=== PATIENT | female | born 1985 | race Caucasian/White ===

== ENCOUNTER 2016-11-16 14:50 | Emergency (ER) | payer OTHER ==
--- NOTE | 2016-11-16 15:22 | ED Physician Documentation ---
Abdominal Pain - HISTORIAN Historian: patient - HPI Stated Complaint: left abd pain Chief Complaint: Abdominal Pain Additonal Information: lt flank pain rad sl to llq onset yesterday-constant but slightly lesser today. not had similar prev. b/k = ok menses ok fdlmp=8-17 Onset: days ago (2) Duration: constant. denies: worse Timing: still present Context: denies: out of country travel, bad food Severity: moderate Quality: pain, cramping Associated Symptoms: none. denies: fever, chills, nausea, vomiting - ROS CONST: no problems. denies: recent illness GI/: none. denies: constipation, black stools, bloody urine, problems urinating CVS/RESP: none EYES/ENT: denies: problems with vision MS/SKIN/LYMPH: none NEURO/PSYCH: none - SOCIAL HX Smoking History: less than 1 pack/day Alcohol Use: none Drug Use: none - FAMILY HX Family History: no significant history - PAST HX Past History: none, other (pneumonia as child) Surgeries/Procedures: BLT (btl in 2011--uterin preg 2012) Home Medications: Ambulatory Orders Medication Instructions Recorded NK [NK] 11/16/16 Allergies/Adverse Reactions: Allergies Allergy/AdvReac Type Severity Reaction Status Date / Time latex Allergy Verified 11/16/16 15:17 pecan nut Allergy Verified 11/16/16 15:17 - VITAL SIGNS Vital Signs: Vital Signs Temp Pulse Resp BP Pulse Ox 77 18 107/51 98 11/16/16 14:50 11/16/16 14:50 11/16/16 14:50 11/16/16 14:50 - REVIEWED ASSESSMENTS Nursing Assessment Reviewed: Yes Vitals Reviewed: Yes ED Results Lab/Radiology - Lab Results Lab Results: Lab Results 11/16/16 11/16/16 11/16/16 16:18 16:00 16:00 WBC 5.80 K/ul K/ul (4.00-12.00) RBC 4.46 M/ul M/ul (3.90-5.20) Hgb 12.9 g/dL g/dL (12.0-16.0) Hct 39.6 % % (34.5-46.5) MCV 89.0 fl fl (80.0-100.0) MCH 29.0 pg pg (28.0-34.0) MCHC 32.6 g/dL g/dL (30.0-36.0) RDW 12.8 % % (11.3-14.3) Plt Count 201 K/mm3 K/mm3 (130-400) Neut % (Auto) 55.2 % % (39.0-79.0) Lymph % (Auto) 35.6 % % (16.0-50.0) Elk % (Auto) 4.4 % % (0.0-11.0) Eos % (Auto) 2.2 % % (0.0-6.8) Baso % (Auto) 1.0 (0.0-1.5) Neut # (Auto) 3.2 # k/uL # k/uL (1.4-7.7) Lymph # (Auto) 2.1 # k/uL # k/uL (0.6-4.0) Elk # (Auto) 0.2 # k/uL # k/uL (0.0-0.9) Eos # (Auto) 0.1 # k/uL # k/uL (0.0-0.6) Baso # (Auto) 0.1 # k/uL # k/uL (0.0-0.5) Reactive Lymphs % 1.6 % % (0.0-5.0) Reactive Lymphs # 0.1 # k/uL # k/uL (0.0-0.8) Sodium 140 mmol/L mmol/L (136-145) Potassium 3.7 mmol/L mmol/L (3.5-5.0) Chloride 107 mmol/L mmol/L (98-110) Carbon Dioxide 31 mmol/L mmol/L (20-32) BUN 6 mg/dL L mg/dL (10-26) Creatinine 0.6 mg/dL mg/dL (0.4-1.5) Estimated Creat Clear 131 Est GFR ( Amer) > 60 (60 - ) Est GFR (Non-Af Amer) > 60 (60 - ) Glucose 102 mg/dL H mg/dL (70-99) Calcium 9.4 mg/dL mg/dL (8.5-10.5) Total Bilirubin 0.6 mg/dL mg/dL (0.2-1.2) AST 23 U/L U/L (0-41) ALT 17 U/L U/L (0-45) Alkaline Phosphatase 73 U/L U/L (46-116) Total Protein 7.2 g/dL g/dL (6.0-8.5) Albumin 4.5 g/dL g/dL (3.0-5.5) Amylase 56 U/L U/L (20-104) Urine Color Urine Appearance Urine pH Ur Specific [place] Urine Protein Urine Ketones Urine Occult Blood Urine Nitrite Urine Bilirubin Urine Urobilinogen Ur Leukocyte Esterase Urine RBC Urine WBC Ur Squamous Epith Cells Urine Bacteria Urine Mucus Urine Glucose Urine HCG, Qual Negative (NEGATIVE) 11/16/16 15:50 WBC RBC Hgb Hct MCV MCH MCHC RDW Plt Count Neut % (Auto) Lymph % (Auto) Elk % (Auto) Eos % (Auto) Baso % (Auto) Neut # (Auto) Lymph # (Auto) Elk # (Auto) Eos # (Auto) Baso # (Auto) Reactive Lymphs % Reactive Lymphs # Sodium Potassium Chloride Carbon Dioxide BUN Creatinine Estimated Creat Clear Est GFR ( Amer) Est GFR (Non-Af Amer) Glucose Calcium Total Bilirubin AST ALT Alkaline Phosphatase Total Protein Albumin Amylase Urine Color Yellow (YELLOW) Urine Appearance Slightly cloudy (CLEAR) Urine pH 6.0 (5.0 - 8.0) Ur Specific [place] 1.025 (1.010-1.030) Urine Protein Negative mg/dL mg/dL (NEGATIVE) Urine Ketones Negative mg/dL mg/dL (NEGATIVE) Urine Occult Blood Negative (NEGATIVE) Urine Nitrite Negative (NEGATIVE) Urine Bilirubin Negative (NEGATIVE) Urine Urobilinogen 2.0 Eu H Eu (0.2-1.0) Ur Leukocyte Esterase 1+ H (NEGATIVE) Urine RBC 0-2 (0-2 HPF) Urine WBC 5-10 H (0-5 HPF) Ur Squamous Epith Cells Moderate H (NEG-FEW) Urine Bacteria Few H (NEGATIVE) Urine Mucus Present H (NEGATIVE) Urine Glucose Negative mg/dL mg/dL (NEGATIVE) Urine HCG, Qual - Radiology Radiology Impressions: xray indicates xs gas feces sarthak lt colon---cxr=wnl - Orders Orders: ED Orders Category Date Time Status ABD SERIES PA CHEST [RAD] Stat Exams 11/16/16 Ordered AMYLASE Routine Lab 11/16/16 16:00 Completed CBC/PLATELET/DIFF Routine Lab 11/16/16 16:00 Completed CMP Routine Lab 11/16/16 16:00 Completed URINALYSIS Routine Lab 11/16/16 15:50 Completed URINE CULTURE Routine Lab 11/16/16 15:50 Received URINE HCG Stat Lab 11/16/16 16:18 Completed Abdominal Pain Physical Exam - Physical Exam General Appearance: mild distress EENT: eye inspection normal NECK: normal inspection, supple. No: thyromegaly, lymphadenopathy RESPIRATORY: no resp distress, chest non-tender, breath sounds normal CVS: reg rate & rhythm, heart sounds normal ABDOMEN: soft, tenderness (lt flank sub costal rad slightly to llq) BACK: normal inspection, no CVA tenderness SKIN: warm/dry, normal color. No: cyanosis, diaphoresis, jaundice EXTREMITIES: non-tender, normal range of motion NEURO: oriented X3 Vital Signs: Vital Signs Temp Pulse Resp BP Pulse Ox 77 18 107/51 98 11/16/16 14:50 11/16/16 14:50 11/16/16 14:50 11/16/16 14:50 Discharge Clincal Impression: un diagnosed abdominal pain, mild constipation Referrals: Primary Doctor,No [Primary Care Provider] - 2 Days Home Medications: Ambulatory Orders NK [NK] 11/16/16 Condition: Good Disposition: 01 HOME, SELF-CARE Decision to Admit: NO Decision Time: 17:23
[2016-11-16 15:54] LABS: APPEARANCE,URINE Slightly Cloudy (CLEAR); COLOR,URINE Yellow (YELLOW); OCCULT BLOOD,URINE Negative (NEGATIVE)
[2016-11-16 16:06] LABS: EOSINOPHILS % 2.2 % (0.0-6.8); MONOCYTES % 4.4 % (0.0-11.0); NEUTROPHILS # 3.2 # k/uL (1.4-7.7)
[2016-11-16 16:19] LABS: eGFR (African) > 60; eGFR (Non-African) > 60
[2016-11-16 17:48] VITALS: BP 99/58
--- NOTE | 2016-11-16 19:08 | Diagnostic Imaging Report ---
MACRINA DE PAZ [facility] [address] [facility].[address] [id number] Report Submission Date: Nov 16, 2016 4:42:58 PM CDT Patient Study Name: RUBY YOUNG I Date: Nov 16, 2016 4:18:44 PM CDT Modality Type: CR Gender: F Description: CHEST,ABDOMEN : 83 Institution: [facility] Physician: MACRINA DE PAZ Obstructive series with chest x-ray CLINICAL HISTORY: Left lower abdominal pain for 2 days. FINDINGS: Examination of the chest single upright view demonstrates the lungs to be clear. Cardiovascular and mediastinal silhouettes are within normal limits. Bony thorax is intact. Examination of the abdomen in supine and upright views demonstrates stool throughout the colon. There is no evidence of obstruction or free air. Properitoneal fat lines are preserved. Left psoas margin is well defined. The right psoas is not as well demonstrated although this is a nonspecific finding. There is no abnormal calcification in the abdomen or pelvis. IMPRESSION: Increased stool throughout the colon. Electronically signed on Nov 16, 2016 4:42:58 PM CDT by: Irving BAEZA
== END 2016-11-16 17:42 | disposition home or self-care (01) ==
LOC: ED 14:50
DX: K59.00 Constipation, unspecified (principal)
CPT/HCPCS: 74022; 80053; 81002; 81025; 82150; 85025; 87086; 99283; S1016